=== PATIENT | male | born 1975 | race Caucasian/White ===

== ENCOUNTER 2022-04-13 06:45 | Emergency (ER) | payer BC ==
[~2022-04-13] VITALS: Ht 170.2 cm; Wt 81.0 kg
[2022-04-13] MEDS ORDERED: normal saline 1000ML IV soln IVB ONE (09:05)
[2022-04-13] MEDS ORDERED: ondansetron/PF 4mg/2ml inj IV ONE (09:05)
[2022-04-13 09:46] LABS: BASOPHILS % (AUTO) 0.4 % (0-1); EOSINOPHILS # (AUTO) 0.1 X10'3 (0-0.9); EOSINOPHILS % (AUTO) 1.1 % (0-6); HEMATOCRIT 46.6 % (42.0-52.0); HEMOGLOBIN 15.9 g/dl (14.0-17.9); LYMPHOCYTES # (AUTO) 2.7 X10'3 (1.1-4.8); LYMPHOCYTES % (AUTO) 33.7 % (21-51); MEAN CORPUSCULAR HEMOGLOBIN 31.2 PG (27.0-31.0); MEAN CORPUSCULAR HGB CONC 34.1 g/dL (33.0-36.5); MEAN CORPUSCULAR VOLUME 91.7 FL (78-98); MEAN PLATELET VOLUME 7.8 FL (7.4-10.4); MONOCYTES # (AUTO) 0.7 X10'3 (0-0.9); MONOCYTES % (AUTO) 9.1 % (2-12); NEUTROPHILS # (AUTO) 4.5 X10'3 (1.8-7.7); NEUTROPHILS % (AUTO) 55.7 % (42-75); PLATELET COUNT 193 X10'3 (140-440); RED BLOOD COUNT 5.08 X10'6 (4.70-6.10); RED CELL DISTRIBUTION WIDTH 13.3 % (11.5-14.5); WHITE BLOOD COUNT 8.2 X10'3 (4.5-11.0)
[2022-04-13 10:08] LABS: ALANINE AMINOTRANSFERASE 27 U/L (12-78); ALBUMIN 3.3 G/DL (3.4-5.0); ALKALINE PHOSPHATASE 69 IU/L (46-116); ANION GAP 6 (8-16); ASPARTATE AMINO TRANSFERASE 15 U/L (10-37); BILIRUBIN,TOTAL 1.7 MG/DL (0.1-1.0); BLOOD UREA NITROGEN 13 MG/DL (7-18); BUN/CREATININE RATIO 17.1 (5.4-32.0); CALCIUM 9.1 MG/DL (8.5-10.1); CHLORIDE 104 MMOL/L (99-107); CREATININE 0.76 MG/DL (0.60-1.10); GLUCOSE 93 MG/DL (70-104); SODIUM 141 MMOL/L (135-145); TOTAL CARBON DIOXIDE 30.9 MMOL/L (24-32); TOTAL PROTEIN 6.6 G/DL (6.4-8.2); eGFR > 90 ML/MIN
[2022-04-13] MEDS ORDERED: iohexol 300mg/ml 100ml inj. ONE (10:10)
[2022-04-13 11:16] VITALS: BP 122/76
[2022-04-13] MEDS ORDERED: METR-159 PO (11:27)
[2022-04-13] MEDS ORDERED: ONDA-103 PO (12:23)
[2022-04-13] MEDS ORDERED: SUCR1TAB34 PO (12:23)
[2022-04-13] MEDS ORDERED: PANT-47 PO (12:23)
== END 2022-04-13 11:45 | disposition home or self-care (01) ==
LOC: ER 06:47
DX: R10.10 Upper abdominal pain, unspecified (principal); R11.2 Nausea with vomiting, unspecified; K21.9 Gastro-esophageal reflux disease without esophagitis; Z79.899 Other long term (current) drug therapy
CPT/HCPCS: 36415; 74177; 80053; 85025; 96360; 99285; J3490; J7030; Q9967

== ENCOUNTER 2022-11-15 09:49 | Outpatient (CLI) | payer BC ==
[~2022-11-15 09:49] MED LIST: ONDA-103 PO; PANT-47 PO; SUCR1TAB34 PO
[2022-11-15 10:22] LABS: BASOPHILS % (AUTO) 0.4 % (0-1); EOSINOPHILS # (AUTO) 0.1 X10'3 (0-0.9); EOSINOPHILS % (AUTO) 0.8 % (0-6); HEMATOCRIT 48.6 % (42.0-52.0); HEMOGLOBIN 16.6 g/dl (14.0-17.9); LYMPHOCYTES # (AUTO) 3.4 X10'3 (1.1-4.8); LYMPHOCYTES % (AUTO) 31.3 % (21-51); MEAN CORPUSCULAR HEMOGLOBIN 31.7 PG (27.0-31.0); MEAN CORPUSCULAR HGB CONC 34.1 g/dL (33.0-36.5); MEAN CORPUSCULAR VOLUME 92.9 FL (78-98); MEAN PLATELET VOLUME 7.8 FL (7.4-10.4); MONOCYTES # (AUTO) 0.6 X10'3 (0-0.9); MONOCYTES % (AUTO) 5.2 % (2-12); NEUTROPHILS # (AUTO) 6.8 X10'3 (1.8-7.7); NEUTROPHILS % (AUTO) 62.3 % (42-75); PLATELET COUNT 198 X10'3 (140-440); RED BLOOD COUNT 5.23 X10'6 (4.70-6.10); RED CELL DISTRIBUTION WIDTH 13.9 % (11.5-14.5); WHITE BLOOD COUNT 10.9 X10'3 (4.5-11.0)
[2022-11-15 10:31] LABS: ALANINE AMINOTRANSFERASE 34 U/L (12-78); ALBUMIN 3.5 G/DL (3.4-5.0); ALBUMIN/GLOBULIN RATIO 1.1 (1.1-1.5); ALKALINE PHOSPHATASE 62 IU/L (46-116); ANION GAP 8 (8-16); ASPARTATE AMINO TRANSFERASE 20 U/L (10-37); BILIRUBIN,TOTAL 1.4 MG/DL (0.1-1.0); BLOOD UREA NITROGEN 9 MG/DL (7-18); CALCIUM 9.4 MG/DL (8.5-10.1); CHLORIDE 107 MMOL/L (99-107); CHOL/HDL RATIO 2.7 (0.00-4.99); CHOLESTEROL 189 MG/DL (0-200); CREATININE 0.75 MG/DL (0.60-1.10); GLUCOSE 88 MG/DL (70-104); HDL CHOLESTEROL 71 MG/DL (35-60); LDL CHOLESTEROL 89 MG/DL (50-100); POTASSIUM 4.6 MMOL/L (3.5-5.1); SODIUM 143 MMOL/L (135-145); TOTAL CARBON DIOXIDE 28.4 MMOL/L (24-32); TOTAL PROTEIN 6.8 G/DL (6.4-8.2); TRIGLYCERIDES 106 MG/DL (20-135); eGFR > 90 ML/MIN
[2022-11-15 10:48] LABS: HEMOGLOBIN A1C 5.1 % (4.5-6.2)
[2022-11-16 15:27] LABS: VITAMIN D, 1,25 DIHYDROXY 56.4 pg/mL (24.8-81.5)
== END 2022-11-15 23:59 | disposition home or self-care (01) ==
LOC: LAB 09:49
PROVIDERS: ATTEND Physician Assistant
DX: G71.00 Muscular dystrophy, unspecified (principal); E78.5 Hyperlipidemia, unspecified; E55.9 Vitamin D deficiency, unspecified
CPT/HCPCS: 36415; 80053; 80061; 82306; 82652; 83036; 85025

== ENCOUNTER 2023-05-02 09:42 | Day surgery (SDC) | payer BC ==
[~2023-05-02] VITALS: Ht 170.2 cm; Wt 79.6 kg
[2023-05-02] MEDS ORDERED: NO HOME MEDS (09:56)
[2023-05-02 10:00] VITALS: BP 110/69; PULSE 67; RESP 14
[2023-05-02] MEDS ORDERED: fentaNYL/PF 50MCG/1 ML 2ML syringe ONE (12:01)
[2023-05-02] MEDS ORDERED: MIDAZolam 1 MG/ML 5ML VIAL ONE (12:01)
[2023-05-02] MEDS ORDERED: diphenhydrAMINE 50 mg/ml inj ONE (12:04)
[2023-05-02 12:28] VITALS: BP 101/74; PULSE 70; RESP 10; O2SAT 95
[2023-05-02 12:37] VITALS: BP 91/61; PULSE 66; RESP 13; O2SAT 92
[2023-05-02 12:47] VITALS: BP 94/65; PULSE 65; RESP 13; O2SAT 92
[2023-05-02 12:57] VITALS: BP 93/65; PULSE 63; RESP 13; O2SAT 92
== END 2023-05-02 13:15 | disposition home or self-care (01) ==
LOC: GI LAB 09:42
PROVIDERS: ATTEND Internal Medicine Gastroenterology
DX: Z12.11 Encounter for screening for malignant neoplasm of colon (principal); G71.00 Muscular dystrophy, unspecified; Z79.899 Other long term (current) drug therapy; Z87.19 Personal history of other diseases of the digestive system
CPT/HCPCS: 45378; 99152; J1200; J2250; J3010; J7030; Z7512; A4620

== ENCOUNTER 2025-03-31 13:47 | Outpatient (CLI) | payer BC ==
[~2025-03-31 13:47] MED LIST changes: +NO HOME MEDS; -ONDA-103 PO; -PANT-47 PO; -SUCR1TAB34 PO
--- NOTE | 2025-03-31 21:23 | CARDIOLOGY REPORT ---
APPROVED REPORT EXAM: Comprehensive 2D, Doppler, and color-flow Echocardiogram. Patient Location: OUT-PATIENT Blood Pressure: 103/71 mmHg Heart Rate: 70 bpm Rhythm: NSR Indications SOB Pearl Diver is Trevon Jaime MD No previous echo 2D Dimensions LA Diam 4.0 cm IVSd 1.0 (0.7-1.1cm) LVDd 4.5 cm PWd 1.0 (0.7-1.1cm) IVSs 1.4 (0.8-1.2cm) LVDs 2.5 (2.5-4.0cm) PWs 1.4 (0.8-1.2cm) LVOT Diameter 2.40 (1.8-2.4cm) LVEF(%) 75.3 (>50%) Ao Asc Diam. 3.22 cm IVC 13.01 mm FS (%) 43.9 % SV 68.2 ml M-Mode Dimensions MV EPSS 0.8 (<0.5cm) Aortic Valve AoV Peak Italo. 96.4 cm/s AoV VTI 19.7 cm AO Peak GR. 3.7 mmHg AO Mean GR. 2 mmHg LVOT VTI 14.42 cm LVOT Peak Italo. 76.0 cm/s RADHA (VMAX) 3.56 cm2 RADHA (VTI) 3.31 cm2 AV DI 0.73 % Mitral Valve MV E Velocity 51.3 cm/s MV DECEL TIME 208 ms MV A Velocity 42.6 cm/s MV PHT 49 ms E/A Ratio 1.2 MVA (PHT) 4.48 cm2 TDI E/Medial E' 8.2 Tricuspid Valve RAP ESTIMATE 10 mmHg Pulmonary Vein S2 Velocity 60.25 cm/s PVa Duration 74 msec LEFT VENTRICLE Normal LV size and wall thickness. Overall systolic function is normal. LVEF is 70%. RIGHT VENTRICLE RV appears mildly dilated with normal contractility. ATRIA The left atrium size is normal. AORTIC VALVE Trileaflet AV appears sclerotic without stenosis. No insufficiency by color and spectral flow Doppler. MITRAL VALVE Mild MV annular thickening without stenosis. Trace regurgitation by color and spectral flow Doppler. TRICUSPID VALVE TV appears structurally normal with trace regurgitation by color and spectral flow Doppler. PULMONIC VALVE Normal PV without stenosis, physiologic insufficiency by color and spectral flow Doppler. GREAT VESSELS The aortic root is normal in size. The ascending aorta is normal in size. The IVC is normal in size and collapses >50% with inspiration. PERICARDIUM There is no pericardial effusion. Other Information Study Quality: Adequate Conclusion Normal chamber sizes. LV normal in size and function, no wall motion abnormalities. LVEF 70%. Normal RV size and function. Normal valve structures and function. Unable to estimate RVSP due to inadequate TR jet. IVC normal in size with normal respiratory variation, Estimated CVP 3 mmHg. No pericardial effusion
== END 2025-03-31 23:59 | disposition home or self-care (01) ==
LOC: CARD DIAG 13:47
PROVIDERS: ATTEND Physician Assistant
DX: R06.02 Shortness of breath (principal)
CPT/HCPCS: 93306